=== PATIENT | male | born 1975 | race Caucasian/White ===

== ENCOUNTER 2022-11-15 10:34 | Outpatient (CLI) | payer OTHER, SELFPAY ==
[2022-11-15 12:08] LABS: Cholesterol* 219 mg/dL (90-199)
[2022-11-15 12:09] LABS: Amylase* 55 U/L (18-89); HDL Cholesterol* 47 mg/dL (>=40); LDL Cholesterol Calculated 142 mg/dL (<100); Triglycerides* 149 mg/dL (40-149)
== END 2022-11-15 10:35 | disposition home or self-care (01) ==
LOC: NFLDREF 10:36
PROVIDERS: PCP Internal Medicine; Visit Provider Internal Medicine
DX: R10.9 Unspecified abdominal pain (principal)
CPT/HCPCS: 80061; 82150

== ENCOUNTER 2024-01-07 08:20 | Outpatient (CLI) | payer BC, SELFPAY | END 2024-01-07 08:21 | disposition home or self-care (01) | LOC: NFLDREF 01-08 06:14 | PROVIDERS: PCP Internal Medicine; Referring Provider Internal Medicine; Visit Provider Internal Medicine | DX: Z13.228 Encounter for screening for other metabolic disorders (principal); Z13.220 Encounter for screening for lipoid disorders; Z12.5 Encounter for screening for malignant neoplasm of prostate | CPT/HCPCS: 80053; 80061; G0103 ==

== ENCOUNTER 2025-05-11 08:05 | Outpatient (CLI) | payer BC, SELFPAY | END 2025-05-11 08:06 | disposition home or self-care (01) | LOC: NFLDREF 05-14 09:22 | PROVIDERS: PCP Internal Medicine; Referring Provider Internal Medicine; Visit Provider Internal Medicine | DX: E78.5 Hyperlipidemia, unspecified (principal); Z13.9 Encounter for screening, unspecified | CPT/HCPCS: 80053; 80061 ==